=== PATIENT | female | born 1970 | race Caucasian/White ===

== ENCOUNTER → 2016-10-04 | Outpatient (CLI) | payer BC ==
[~2016-10-04] MED LIST: XANAX .25M0.25 MG/TA PO; [UNRECOGNIZED DRUG - OTHER] PO
== END ==
LOC: MC.RAD 14:59
DX: Z12.31 Encounter for screening mammogram for malignant neoplasm of breast (principal)

== ENCOUNTER → 2017-08-19 | Outpatient (REF) | LOC: ZLAB.WCH 17:58 | DX: Z01.89 Encounter for other specified special examinations (principal) ==

== ENCOUNTER → 2018-06-05 | Outpatient (REF) | LOC: ZLAB.WCH 14:15 | DX: Z01.89 Encounter for other specified special examinations (principal) ==

== ENCOUNTER → 2018-12-01 | Outpatient (CLI) | payer BC | LOC: MC.RAD 16:21 | DX: Z12.31 Encounter for screening mammogram for malignant neoplasm of breast (principal) ==

== ENCOUNTER → 2020-02-23 | Outpatient (CLI) | payer BC | LOC: MC.RAD 02-11 13:30 | DX: Z12.31 Encounter for screening mammogram for malignant neoplasm of breast (principal) ==